=== PATIENT | female | born 1950 | race Caucasian/White ===

== ENCOUNTER 2018-09-28 20:26 | Emergency (ER) | payer MEDICARE, BC ==
[2018-09-28] MEDS ORDERED: Gentamicin 0.3% Ophth Soln 5 ML Bottle EYELF ONE (20:27)
[2018-09-28] MEDS ORDERED: Fluorescein 1 MG Ophth Strip EYELF ONE (20:34)
[2018-09-28] MEDS ORDERED: Tetracaine HCl/PF 0.5% 4 ML Bottle EYELF ONE (20:34)
[2018-09-28 20:37] VITALS: BP 148/78
--- NOTE | 2018-09-28 20:37 | EDM.PDOC ---
ED HPI GENERAL MEDICAL PROBLEM - General Chief Complaint: ENT Problem Stated Complaint: SOMETHING WRONG WITH EYES Time Seen by Provider: 09/28/18 20:35 Source of Information: Reports: Patient History Limitations: Reports: No Limitations - History of Present Illness INITIAL COMMENTS - FREE TEXT/NARRATIVE: sudden onset left eye redness at noon while inside house. denies getting anything in eye. feels itchy not painful. - Related Data Allergies Allergy/AdvReac Type Severity Reaction Status Date / Time No Known Allergies Allergy Verified 09/28/18 20:36 Home Meds: Home Meds Cyclobenzaprine [Flexeril] 10 mg PO DAILY 12/20/15 [History] Hydrochlorothiazide 25 mg PO DAILY 12/20/15 [History] Hydrocodone/Acetaminophen [Hydrocodon-Acetaminophen 5-325] 1 tab PO Q6H PRN [History] Levothyroxine [Synthroid] 100 mg PO DAILY 12/20/15 [History] Simvastatin [Zocor] 20 mg PO DAILY 12/24/15 [History] Past Medical History Cardiovascular History: Reports: Hypertension Other Gastrointestinal History: diverticulum, stomach polyps Musculoskeletal History: Reports: Other (See Below) Other Musculoskeletal History: herniated disks Endocrine/Metabolic History: Reports: Hypothyroidism Social & Family History - Caffeine Use Caffeine Use: Reports: Coffee - Living Situation & Occupation Living situation: Reports: Occupation: Employed ED ROS GENERAL - Review of Systems Review Of Systems: ROS reveals no pertinent complaints other than HPI. ED EXAM GENERAL W FULL EYE - Physical Exam Exam: See Below Exam Limited By: No Limitations General Appearance: Alert, WD/WN, Mild Distress, Other (discomfort) Eye Exam: Bilateral Eye: PERRL (pupils ER @ 4mm) Eyelids: Left: Lid Everted for Exam (no f/b seen), Bilateral: Normal Appearance Conjunctiva & Sclera: Left: Injected, Other (abrasion sup-inf) Cornea Exam: Left: Normal Appearance, Examined with Flourescein Extraocular Movements: Bilateral: Intact Pupillary Size: Bilateral: 4 mm Pupillary Reaction: Bilateral: Brisk Anterior Chamber: Bilateral: Normal Appearance Ears: Hearing Grossly Normal Throat/Mouth: Normal Voice, No Airway Compromise Head: Atraumatic Neck: Non-Tender, Full Range of Motion Respiratory/Chest: No Respiratory Distress Cardiovascular: Regular Rate, Rhythm GI/Abdominal: Soft, Non-Tender Neurological: Alert, Oriented, Normal Cognition, Normal Gait, No Motor/Sensory Deficits Psychiatric: Flat Affect Skin Exam: Warm, Dry, Normal Color Lymphatic: No Adenopathy Course - Vital Signs Last Recorded V/S: Last Vital Signs Temp 36.7 C 09/28/18 20:35 Pulse 95 09/28/18 20:35 Resp 18 09/28/18 20:35 BP 148/78 H 09/28/18 20:35 Pulse Ox 97 09/28/18 20:35 - Orders/Labs/Meds Meds: Medications Discontinued Medications Generic Name Dose Route Start Last Admin Trade Name Karin PRN Reason Stop Dose Admin Fluorescein Sodium 1 mg 09/28/18 20:34 09/28/18 20:44 Ful-Khushbu EYELF 09/28/18 20:35 1 mg ONETIME ONE Administration Tetracaine HCl 1 ml 09/28/18 20:34 09/28/18 20:43 Tetracaine 0.5% Steri-Unit Edna EYELF 09/28/18 20:35 2 drop ASDIRECTED ONE Administration Departure - Departure Time of Disposition: 20:47 Disposition: Home, Self-Care 01 Condition: Good Clinical Impression: Conjunctival abrasion Qualifiers: Encounter type: initial encounter Laterality: left Qualified Code(s): S05.02XA - Injury of conjunctiva and corneal abrasion without foreign body, left eye, initial encounter Conjunctivitis Qualifiers: Conjunctivitis type: unspecified Laterality: left Qualified Code(s): H10.9 - Unspecified conjunctivitis - Discharge Information Instructions: Bacterial Conjunctivitis, [id number] Forms: ED Department Discharge Additional Instructions: 1) don't rub eye and keep eye clean 2) avoid nabil areas 3) follow up at eye clinic as needed rx togo; gentamcin eye drops 2 drops qid x 5 days
[2018-09-28] MEDS ORDERED: Gentamicin 0.3% Ophth Soln 5 ML Bottle ONE (20:46)
== END 2018-09-28 20:55 | disposition home or self-care (01) ==
LOC: DL.ED 20:26
DX: S05.02XA Injury of conjunctiva and corneal abrasion without foreign body, left eye, initial encounter (principal); H10.9 Unspecified conjunctivitis; I10 Essential (primary) hypertension; E03.9 Hypothyroidism, unspecified; Z79.899 Other long term (current) drug therapy; X58.XXXA Exposure to other specified factors, initial encounter; Y92.009 Unspecified place in unspecified non-institutional (private) residence as the place of occurrence of the external cause
CPT/HCPCS: 99283; A9270